=== PATIENT | female | born 1955 | race Caucasian/White ===

== ENCOUNTER 2019-01-24 06:07 | Day surgery (SDC) | payer BC, OTHER ==
[~2019-01-24 06:07] MED LIST: Lactated Ringers 1,000 ML IV SCH; Lidocaine 1%/Sod Bicarbonate in NS 8.4% 1 ML Syringe IDERM PRN; Sodium Chloride 0.9% 10 ML Syringe FLUSH PRN
[2019-01-24] MEDS ORDERED: Bupivacaine 0.25% 30 ML SDV ONE (06:31)
[2019-01-24] MEDS ORDERED: Lidocaine 1% 30 ML SDV ONE (06:31)
--- NOTE | 2019-01-24 06:38 | PCM.PREANE ---
Preanesthetic Assessment - Anesthesia/Transfusion/Family Hx Anesthesia History: Prior Anesthesia Without Reaction Family History of Anesthesia Reaction: No Transfusion History: No Prior Transfusion(s) - Review of Systems General: No Symptoms Pulmonary: No Symptoms Cardiovascular: No Symptoms Gastrointestinal: No Symptoms Neurological: No Symptoms - Physical Assessment NPO Status Date: 01/23/19 NPO Status Time: 00:00 Pulse: 65 O2 Sat by Pulse Oximetry: 98 Respiratory Rate: 16 Blood Pressure: 138/81 Temperature: 36.5 C Height: 1.55 m Weight: 94.529 kg ASA Class: 2 Mental Status: Alert & Oriented x3 Airway Class: Mallampati = 2 Dentition: Reports: Normal Dentition, [place](s) Thyro-Mental Finger Breadths: 3 Mouth Opening Finger Breadths: 3 ROM/Head Extension: Full Lungs: Clear to Auscultation, Normal Respiratory Effort Cardiovascular: Regular Rate, Regular Rhythm - Lab Values: Laboratory Last Values MRSA (PCR) Negative 01/16/19 13:25 - Allergies Allergies/Adverse Reactions: Allergies Allergy/AdvReac Type Severity Reaction Status Date / Time No Known Allergies Allergy Verified 01/23/19 14:33 - Blood Blood Available: No Product(s) Available: None - Anesthesia Plan Pre-Op Medication Ordered: None - Acknowledgements Anesthesia Type Planned: PHILIP Pt an Appropriate Candidate for the Planned Anesthesia: Yes Alternatives and Risks of Anesthesia Discussed w Pt/Guardian: Yes Pt/Guardian Understands and Agrees with Anesthesia Plan: Yes PreAnesthesia Questionnaire HEENT History: Reports: Impaired Vision, Other (See Below) Other HEENT History: READING GLASSES Cardiovascular History: Reports: None Respiratory History: Reports: None Gastrointestinal History: Reports: Other (See Below) Other Gastrointestinal History: benign liver cyst Genitourinary History: Reports: None 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 Musculoskeletal History: Reports: Other (See Below) Other Musculoskeletal History: right hand ganglion cyst, low back pain Neurological History: Reports: None Psychiatric History: Reports: None Endocrine/Metabolic History: Reports: None Hematologic History: Reports: None Immunologic History: Reports: None Oncologic (Cancer) History: Reports: None Dermatologic History: Reports: None - Past Surgical History Head Surgeries/Procedures: Reports: None Cardiovascular Surgical History: Reports: None Respiratory Surgical History: Reports: None GI Surgical History: Reports: Appendectomy Female Surgical History: Reports: Section Male Surgical History: Reports: None Endocrine Surgical History: Reports: None Neurological Surgical History: Reports: None Musculoskeletal Surgical History: Reports: None Oncologic Surgical History: Reports: None Dermatological Surgical History: Reports: None - SUBSTANCE USE Smoking Status *Q: Never Smoker Tobacco Use Within Last Twelve Months: No Second Hand Smoke Exposure: No Days Per Week of Alcohol Use: 0 Number of Drinks Per Day: 0 Total Drinks Per Week: 0 Recreational Drug Use History: No - HOME MEDS Home Medications: Home Meds . [No Known Home Meds] 01/23/19 [History] - CURRENT (IN HOUSE) MEDS Current Meds: Current Medications Lactated Ringer's (Ringers, Lactated) 1,000 mls @ 125 mls/hr IV ASDIRECTED BRITTANY Stop: 01/24/19 23:00 Lidocaine/Sodium Bicarbonate (Buffered Lidocaine 1% In Ns 8.4%) 0.25 ml IDERM ONETIME PRN PRN Reason: Prior to IV Start Stop: 01/24/19 18:00 Sodium Chloride (Saline Flush) 10 ml FLUSH ASDIRECTED PRN PRN Reason: Keep Vein Open Stop: 01/24/19 18:00
[2019-01-24] MEDS ORDERED: Ondansetron 4 MG/2 ML SDV ONE (06:46)
[2019-01-24] MEDS ORDERED: Propofol 200 MG/20 ML SDV ONE (06:46)
[2019-01-24] MEDS ORDERED: Midazolam 1 MG/ML 2 ML SDV ONE (06:47)
[2019-01-24] MEDS ORDERED: ceFAZolin 1 GM Vial ONE (06:47)
[2019-01-24] MEDS ORDERED: fentaNYL 100 MCG/2 ML SDV ONE (06:47)
[2019-01-24] MEDS ORDERED: Sodium Bicarbonate 8.4% 50 MEQ/50 ML SDV ONE (06:48)
[2019-01-24] MEDS ORDERED: Lidocaine 0.5% 50 ML SDV ONE (06:48)
[2019-01-24] MEDS ORDERED: Acetaminophen/HYDROcodone 325-5 MG Tab PO ONE (08:43)
[2019-01-24] MEDS ORDERED: Lactated Ringers 1,000 ML ONE (09:47)
--- NOTE | 2019-01-29 11:55 | PCM.OPNOTE ---
- General Post-Op/Procedure Note Date of Surgery/Procedure: 01/24/19 Operative Procedure(s): excision of right hand mass Pre Op Diagnosis: right hand mass Post-Op Diagnosis: Same Anesthesia Technique: Local, Regional Block Primary Surgeon: Jesus Yan Anesthesia Provider: Tez Alberts Wallpaperer Helper: Liane Lang EBL in mLs: 5 Complications: None Condition: Good
--- NOTE | 2019-01-29 12:54 | OR ---
DATE OF OPERATION: 01/24/2019 SURGEON: Jesus Yan MD OPERATION PERFORMED: Excision of right hand mass. PREOPERATIVE DIAGNOSIS: Right hand mass. POSTOPERATIVE DIAGNOSIS: Right hand mass. ANESTHESIA: Local with regional Theresa block. ANESTHESIA PROVIDER: Constantin Fair. FIRE MANAGEMENT TECHNICIAN: Liane Lang PA-C. ESTIMATED BLOOD LOSS: 5 mL. COMPLICATIONS: None. CONDITION: Stable. DESCRIPTION OF PROCEDURE: The patient was identified in the preop holding area. Proper site was marked and identified by the surgeon. The patient was taken back to the operating theater where after adequate anesthesia, the patient's right upper extremity was sterilely prepped and draped in the usual sterile fashion. OR time-out was performed. The patient did not receive antibiotics and is not indicated for soft tissue hand procedure at this time. Mass was identified over the fourth metacarpal along the right hand over the MCP joint on the volar side and a transverse incision was made. The patient was noted to have some pain still, so 1% lidocaine without epinephrine and 0.25% Marcaine without epinephrine were used to anesthetize the site further. The hand mass was then noted to be in the subcutaneous region as well as part of the tendon sheath. It did not involve the tendon, it was taken down all the way to the tendon sheath and it was noted to be a multiloculated brownish and white type mass. There was no fluid noted. It was soft tissue mass that was just a matter of firm, but it was not adhered to surrounding tissues. At this time, it was resected completely. Adequate saline was irrigated through the wound. 3-0 nylon sutures were used for closure of the skin. The patient was placed in a sterile soft dressing and sent to PACU in stable condition and the specimen was sent to pathology. MMODAL /[id number]
== END 2019-01-24 09:20 | disposition home or self-care (01) ==
LOC: JD.SDS 06:07
PROVIDERS: ATTEND Orthopaedic Surgery
DX: M67.441 Ganglion, right hand (principal); K76.89 Other specified diseases of liver; M54.5 Low back pain
CPT/HCPCS: 26160; 87641; A9270; J0690; J2001; J2250; J2405; J2704; J3010; J3490; J7120; 00400

== ENCOUNTER 2020-06-09 16:08 | Emergency (ER) | payer BC, OTHER ==
--- NOTE | 2020-06-09 17:44 | CR ---
Chest: Frontal view of the chest was obtained. Comparison: No previous chest x-ray. Nodular density is noted within the upper right lung. Uncertain if this is due to prominent costochondral calcification or actual pulmonary mass. Lungs otherwise are clear. Heart size and mediastinum are normal. Bony structures are grossly intact. Impression: 1. Nodule within the right upper lung as described above. Noncontrast chest CT should be obtained to further evaluate. 2. Nothing acute is otherwise seen. Diagnostic code #9 This report was dictated in MDT
--- NOTE | 2020-06-09 19:21 | EDM.PDOC ---
ED HPI GENERAL MEDICAL PROBLEM - General Chief Complaint: Chest Pain Stated Complaint: CHEST PAIN Time Seen by Provider: 06/09/20 16:18 Source of Information: Reports: Patient, RN Notes Reviewed - History of Present Illness INITIAL COMMENTS - FREE TEXT/NARRATIVE: 64 yr old female with shooting chest pains today, about 6 very brief episodes. No pain at time of eval. No cough, fever, chills or difficulty breathing. Does not smoke. Discomfort L ant. chest, did not radiate. 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 LABORER: Reports: Other (see below) Other 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 LABORER: aspiriin - Related Data Allergies Allergy/AdvReac Type Severity Reaction Status Date / Time No Known Allergies Allergy Verified 01/23/19 14:33 Home Meds: Home Meds Acetaminophen/HYDROcodone [[place] 325-5 MG] 1 - 2 tab PO Q6H PRN #20 tablet 01/24/19 [Rx] Past Medical History HEENT History: Reports: Impaired Vision, Other (See Below) Other HEENT History: [place] GLASSES Cardiovascular History: Reports: None Respiratory History: Reports: None Gastrointestinal History: Reports: Other (See Below) Other Gastrointestinal History: benign liver cyst Genitourinary History: Reports: None 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: 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: 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 Musculoskeletal History: Reports: Other (See Below) Other Musculoskeletal History: right hand ganglion cyst, low back pain Neurological History: Reports: None Psychiatric History: Reports: None Endocrine/Metabolic History: Reports: None Hematologic History: Reports: None Immunologic History: Reports: None Oncologic (Cancer) History: Reports: None Dermatologic History: Reports: None - Infectious Disease History Infectious Disease History: Reports: Chicken Pox, Mumps, Other (See Below) Other Infectious Disease History: strep throat - Past Surgical History Head Surgeries/Procedures: Reports: None Cardiovascular Surgical History: Reports: None Respiratory Surgical History: Reports: None GI Surgical History: Reports: Appendectomy Female Surgical History: Reports: Section Endocrine Surgical History: Reports: None Neurological Surgical History: Reports: None Musculoskeletal Surgical History: Reports: None Oncologic Surgical History: Reports: None Dermatological Surgical History: Reports: None Social & Family History - Tobacco Use Smoking Status *Q: Never Smoker Second Hand Smoke Exposure: No - Caffeine Use Caffeine Use: Reports: Coffee - Recreational Drug Use Recreational Drug Use: No ED ROS GENERAL - Review of Systems Review Of Systems: See Below Constitutional: Denies: Fever, Chills HEENT: Reports: No Symptoms Respiratory: Denies: Shortness of Breath, Pleuritic Chest Pain, Cough Cardiovascular: Reports: Chest Pain ( gone) GI/Abdominal: Denies: Abdominal Pain, Nausea, Vomiting Musculoskeletal: Denies: Neck Pain, Shoulder Pain, Arm Pain, Back Pain Skin: Reports: No Symptoms Neurological: Reports: No Symptoms ED EXAM, GENERAL - Physical Exam Exam: See Below General Appearance: Alert, No Apparent Distress Head: Atraumatic Neck: Supple Respiratory/Chest: No Respiratory Distress, Lungs Clear, Normal Breath Sounds, Chest Non-Tender Cardiovascular: Regular Rate, Rhythm GI/Abdominal: Non-Tender Extremities: Normal Inspection, Normal Range of Motion. No: Pedal Edema, Leg Pain, Redness Neurological: Alert, Oriented, No Motor/Sensory Deficits Skin Exam: Warm, Dry, Normal Color EKG INTERPRETATION EKG Date: 06/09/20 Rhythm: NSR [place]: Normal P-Wave: Present QRS: Normal ST-T: Normal Course - Vital Signs Last Recorded V/S: Last Vital Signs Temp 97.6 F 06/09/20 16:23 Pulse 68 06/09/20 16:23 Resp 16 06/09/20 16:23 BP 154/86 H 06/09/20 16:23 Pulse Ox 98 06/09/20 16:23 - Orders/Labs/Meds Orders: Active Orders 24 hr Category Date Time Status EKG 12 Lead [EK] Stat Ther 06/09/20 16:13 Ordered Labs: Laboratory Tests 06/09/20 06/09/20 Range/Units 17:00 17:00 WBC 6.25 (3.98-10.04) K/mm3 RBC 5.22 (3.98-5.22) M/mm3 Hgb 14.1 (11.2-15.7) gm/dl Hct 42.4 (34.1-44.9) % MCV 81.2 D (79.4-94.8) fl MCH 27.0 (25.6-32.2) pg MCHC 33.3 (32.2-35.5) g/dl RDW Std Deviation 43.6 (36.4-46.3) fL Plt Count 203 (182-369) K/mm3 MPV 11.3 (9.4-12.3) fl Neut % (Auto) 64.2 (34.0-71.1) % Lymph % (Auto) 24.0 (19.3-51.7) % [place] % (Auto) 9.0 (4.7-12.5) % Eos % (Auto) 2.1 (0.7-5.8) Baso % (Auto) 0.5 (0.1-1.2) % Neut # (Auto) 4.02 (1.56-6.13) K/mm3 Lymph # (Auto) 1.50 (1.18-3.74) K/mm3 [place] # (Auto) 0.56 H (0.24-0.36) K/mm3 Eos # (Auto) 0.13 (0.04-0.36) K/mm3 Baso # (Auto) 0.03 (0.01-0.08) K/mm3 Sodium 140 (136-145) mEq/L Potassium 3.6 (3.5-5.1) mEq/L Chloride 104 (98-107) mEq/L Carbon Dioxide 26 (21-32) mEq/L Anion Gap 13.6 (5-15) BUN 9 (7-18) mg/dL Creatinine 0.8 (0.55-1.02) mg/dL Est Cr Clr Drug Dosing 54.31 mL/min Estimated GFR (MDRD) > 60 (>60) mL/min BUN/Creatinine Ratio 11.3 L (14-18) Glucose 90 (80-115) mg/dL Calcium 8.7 (8.5-10.1) mg/dL Total Bilirubin 0.2 (0.2-1.0) mg/dL AST 22 (15-37) U/L ALT 37 (14-59) U/L Alkaline Phosphatase 69 (46-116) U/L Troponin I < 0.017 (0.00-0.056) ng/mL Total Protein 7.2 (6.4-8.2) g/dl Albumin 3.5 (3.4-5.0) g/dl Globulin 3.7 gm/dL Albumin/Globulin Ratio 1.0 (1-2) - Re-Assessments/Exams Free Text/Narrative Re-Assessment/Exam: 06/09/20 19:23 EKG did not show acute changes, trop. nl. CXR shows a pul nodule R upper lung. CT recomended. Will do the CT now. It is now after change of shift, will call patient with results in the AM. 06/10/20 13:49 CT OK, pt notified this past AM Departure - Departure Time of Disposition: 19:45 Disposition: Home, Self-Care 01 Condition: Fair Clinical Impression: Atypical chest pain, Lung nodule Instructions: Nonspecific Chest Pain, Adult, Pulmonary Nodule, [id number] Referrals: Michelle Monroy, COMBER TENDER [Primary Care Provider] - Forms: ED Department Discharge Additional Instructions: Your heart checks out well with normal EKG, cardiac marker, no evidence for heart stress or heart attack. CT of chest has been done to further evaluate pulmonary nodule. I will call you results in the morning. Sepsis Event Note (ED) - Evaluation Sepsis Screening Result: No Definite Risk - My Orders Last 24 Hours: My Active Orders 06/09/20 16:13 EKG 12 Lead [EK] Stat - Assessment/Plan Last 24 Hours: My Active Orders 06/09/20 16:13 EKG 12 Lead [EK] Stat
--- NOTE | 2020-06-10 06:29 | CT ---
CT chest Technique: Multiple axial sections were obtained through the chest. Intravenous contrast not utilized. Comparison: Prior chest x-ray performed earlier on the same day (4:33 PM). Findings: No axillary adenopathy is seen. Aorta shows no aneurysm. No mediastinal or hilar adenopathy is seen. No pericardial thickening is seen. Multiple cysts are noted within the right and left lobes of the liver. Largest cyst measures 2.4 cm. Cyst is partially visualized within the right kidney measuring 2.0 cm. Small nodule is noted within the right middle lobe most likely representing a partially calcified granuloma. No right upper lobe nodule is seen. Findings on chest x-ray therefore felt to represent costochondral calcification. Bone window settings were reviewed. No acute osseous finding is seen. Impression: 1. Small nodule within the right lung base most likely due to partially calcified granuloma. 2. No nodule within the right upper lung to correlate to chest x-ray finding. Chest x-ray finding therefore felt to represent costochondral calcification. 3. Cysts within the liver and within the right kidney which appears simple. 4. Nothing acute is seen on CT study of the chest. Diagnostic code #2 This report was dictated in MDT
== END 2020-06-09 20:20 | disposition home or self-care (01) ==
LOC: JD.ED 16:08
DX: R07.89 Other chest pain (principal); R91.1 Solitary pulmonary nodule; Z98.890 Other specified postprocedural states
CPT/HCPCS: 36415; 71045; 71045-26; 71250; 71250-26; 80053; 84484; 85025; 93005; 93010; 99283; 99285-25

== ENCOUNTER 2024-08-01 08:43 | Emergency (ER) | payer MEDICARE, OTHER ==
[2024-08-01] MEDS: Acetaminophen/HYDROcodone 325-5 MG Tab PO ONE (09:48)
[2024-08-01 09:58] LABS: BASOPHILS PERCENT AUTO 0.6 % (0.0-1.0); EOSINOPHILS ABSOLUTE AUTO 0.2 K/mm3 (0.0-0.4); EOSINOPHILS PERCENT AUTO 2.1 % (0.0-6.0); HEMATOCRIT 39.5 % (37.0-47.0); IMMATURE GRAN ABSOLUTE AUTO 0.01 K/mm3 (0.00-0.05); IMMATURE GRAN PERCENT AUTO 0.1 % (0.0-0.4); LYMPHOCYTES ABSOLUTE AUTO 1.3 K/mm3 (1.0-4.8); MEAN CORPUSCULAR HEMOGLOBIN 27.4 pg (28.0-32.0); MEAN CORPUSCULAR HGB CONC 32.9 g/dl (32.0-36.0); MEAN CORPUSCULAR VOLUME 83.3 fl (83.0-99.0); MEAN PLATELET VOLUME 11.2 fl (9.4-12.3); MONOCYTES ABSOLUTE AUTO 0.4 K/mm3 (0.0-0.8); MONOCYTES PERCENT AUTO 6.3 % (0.0-8.0); NEUTROPHILS ABSOLUTE AUTO 5.1 K/mm3 (1.8-7.7); NEUTROPHILS PERCENT AUTO 72.9 % (41.0-71.0); PLATELET COUNT,PLT 194 K/mm3 (150-400); RED BLOOD CELL COUNT 4.74 M/mm3 (4.10-5.30); WHITE BLOOD CELL COUNT,WBC 7.01 K/mm3 (3.9-11.3)
[2024-08-01 10:23] LABS: ALBUMIN 3.4 g/dl (3.4-5.0); ANION GAP 13.4 (5-15); BILIRUBIN TOTAL 0.3 mg/dL (0.2-1.0); BUN/CREATININE RATIO 14.3 (14-18); C-REACTIVE PROTEIN 0.57 mg/dL (<0.30); CALCIUM 8.3 mg/dL (8.5-10.1); CREATININE 0.7 mg/dL (0.55-1.02); EST CRCL DRUG DOSING (CG) 58.85 mL/min; POTASSIUM,K 4.4 mEq/L (3.5-5.1); PROTEIN TOTAL,TP 6.9 g/dl (6.4-8.2); URIC ACID 3.9 mg/dL (2.6-6.0)
== END 2024-08-01 12:02 | disposition home or self-care (01) ==
LOC: JD.ED 08:43
DX: S83.92XA Sprain of unspecified site of left knee, initial encounter (principal); Z86.16 Personal history of COVID-19; Z90.49 Acquired absence of other specified parts of digestive tract; X50.9XXA Other and unspecified overexertion or strenuous movements or postures, initial encounter
CPT/HCPCS: 36415; 73564; 80053; 84550; 85025; 85652; 86140; 93971; 99284; A9270; 99283